=== PATIENT | female | born 1985 | race Caucasian/White ===

== ENCOUNTER 2016-09-15 18:38 | Emergency (ER) | payer OTHER ==
[~2016-09-15] VITALS: Ht 157.5 cm; Wt 80.2 kg
[~2016-09-15 18:38] MED LIST: ADVAIR 250/501 DISK IH; ADVAIR HFA120 INHALA IH; AEROECLIPSE1 EACH MC; AZITHROMYCIN250 MG PO; AZITHROMYCIN500 M1 PO; BENZONATATE100 MG PO; CETIRIZINE HCL10 M2; DELTASONE20 M1 PO; FLOVENT 22120 INHALA IH; FLOVENT 44120 INHALA IH; HYCODAN SYRUP480 ML PO; LEVOFLOXACIN750 MG PO; MEDROL DOSEPAK4 MG PO; OPTICHAMBER DI1 EACH; PEPCID20 MG PO; PREDNISONE10 M1 PO; PREDNISONE10 MG PO; PREDNISONE20 MG PO; PREDNISONE50 MG PO; PROAIR HFA8.5 GM; PROAIR HFA8.5 GM IH; PROAIR RESPICL90 MCG IH; PROVENTIL HFA6.7 GM IH; PROVENTIL,2.5 MG/3 M IH; PROVENTIL2.5 MG/3 M IH; ROBITUSSIN AC,T10 ML PO; ROBITUSSIN DM118 ML PO; TESSALON PERLE100 MG PO; TRAMADOL HCL50 MG PO; VENTOLIN HFA18 GM IH; ZITHROMAX Z-PA250 MG PO; ZYRTEC10 M2 PO
[2016-09-15 19:40] LABS: BASOPHIL COUNT 0.1 K/uL (0-0.1); EOSINOPHIL (%) 6.1 % (0-5); EOSINOPHIL COUNT 0.9 K/uL (0-0.3); IMMATURE GRANULOCYTE (%) 0.3 % (0.0-0.7); IMMATURE GRANULOCYTE COUNT 0.5 K/uL; LYMPHOCYTE COUNT 1.8 K/uL (1.0-2.8); MONOCYTE (%) 4.4 % (3-12); MONOCYTE COUNT 0.7 K/uL (0-0.8); NEUTROPHIL (%) 76.6 % (45-76); NEUTROPHIL COUNT 11.2 K/uL (1.8-6.4)
[2016-09-15 19:41] LABS: HEMATOCRIT 37.2 % (36.0-46.0); MCH 29.2 PG (29.0-34.0); MCHC 32.3 G/DL (30.0-36.0); MCV 90.5 FL (83-99); PLATELET COUNT 244 K/uL (156-360); RBC DIS.WIDTH-CV 14.1 % (11.8-14.6); RBC DIS.WIDTH-SD 45.4 % (39-53); RED BLOOD COUNT 4.11 M/uL (3.80-5.20); WHITE BLOOD COUNT 14.7 K/uL (4.1-10.2)
[2016-09-15 19:44] LABS: CHLORIDE 106 mEq/L (99-109); POTASSIUM 3.9 mEq/L (3.7-5.4); SODIUM 141 mEq/L (136-147)
[2016-09-15 19:47] LABS: GLUCOSE 107 mg/dL (70-99)
[2016-09-15 19:48] LABS: ANION GAP 11 MEQ/L (2-14)
[2016-09-15 19:49] LABS: TOTAL BILIRUBIN 0.4 mg/dL (0.0-1.0)
[2016-09-15 19:50] LABS: ALKALINE PHOSPHATASE 53 IU/L (3-129)
[2016-09-15 19:51] LABS: GFR ESTIMATE (CALCULATED) > 59 mL/min/
[2016-09-15 19:52] LABS: UREA NITROGEN (BUN) 19 mg/dL (9-23)
[2016-09-15 20:00] LABS: QUANTITATIVE HCG < 4.0 MIU/ML
[2016-09-15 20:13] LABS: INFLUENZA A VIRAL ANTIGEN NEGATIVE; INFLUENZA B VIRAL ANTIGEN NEGATIVE
[2016-09-15] MEDS ORDERED: PREDNISONE20 MG PO (21:30)
[2016-09-15 21:40] VITALS: BP 98/73
== END 2016-09-15 21:50 | disposition home or self-care (01) ==
LOC: EME 18:38
PROVIDERS: Emergency Medicine
DX: J45.901 Unspecified asthma with (acute) exacerbation (principal); F17.200 Nicotine dependence, unspecified, uncomplicated
CPT/HCPCS: 71020; 80053; 84702; 85025; 87502; 93005; 94640; 94640 76; 99281; 99284; J1100; J7644

== ENCOUNTER 2016-11-01 21:32 | Emergency (ER) | payer SELFPAY ==
[~2016-11-01] VITALS: Ht 160 cm; Wt 79.4 kg
[2016-11-01 21:44] LABS: HEMATOCRIT 39.6 % (36.0-46.0); MCH 28.8 PG (29.0-34.0); MCHC 31.3 G/DL (30.0-36.0); MCV 92.1 FL (83-99); MEAN PLAT.VOLUME 9.6 uM^3 (9.5-12.4); PLATELET COUNT 222 K/uL (156-360); RBC DIS.WIDTH-CV 13.5 % (11.8-14.6); RBC DIS.WIDTH-SD 45.5 % (39-53); WHITE BLOOD COUNT 7.8 K/uL (4.1-10.2)
[2016-11-01 21:52] LABS: CHLORIDE 107 mEq/L (99-109); POTASSIUM 3.9 mEq/L (3.7-5.4); SODIUM 141 mEq/L (136-147)
[2016-11-01 21:54] LABS: GLUCOSE 106 mg/dL (70-99)
[2016-11-01 21:55] LABS: ANION GAP 9 MEQ/L (2-14)
[2016-11-01 21:58] LABS: GFR ESTIMATE (CALCULATED) > 59 mL/min/
[2016-11-01 21:58] LABS: ADD MIUA? YES; BILIRUBIN NEGATIVE; BLOOD MODERATE; COLOR YELLOW ((YELLOW)); GLUCOSE (STRIP) NEGATIVE; KETONES NEGATIVE; LEUKOCYTES TRACE; NITRITE POSITIVE; PROTEIN (STRIP) NEGATIVE; SPECIFIC GRAVITY 1.008 (1.000-1.030); UROBILINOGEN 0.2 MG/DL (0.2-1.0)
[2016-11-01 21:59] LABS: UREA NITROGEN (BUN) 12 mg/dL (9-23)
[2016-11-01 22:07] LABS: QUANTITATIVE HCG < 4.0 MIU/ML
[2016-11-01 22:11] LABS: BACTERIA RARE /HPF; EPITHELIAL CELLS 1+ /HPF; MUCUS NONE SEEN /LPF; RED BLOOD CELLS 0-5 /HPF (0-5); UCUL ADDED? NO
[2016-11-01] MEDS ORDERED: PROVENTIL HFA6.7 GM IH (23:30)
[2016-11-01] MEDS ORDERED: PREDNISONE20 MG PO (23:30)
[2016-11-01] MEDS ORDERED: CIPRO500 MG PO (23:39)
[2016-11-02 00:02] VITALS: BP 129/81
== END 2016-11-01 23:50 | disposition home or self-care (01) ==
LOC: EME → EDBD 21:32 → EME 21:32
PROVIDERS: Emergency Medicine
DX: J45.909 Unspecified asthma, uncomplicated (principal); N39.0 Urinary tract infection, site not specified; F17.200 Nicotine dependence, unspecified, uncomplicated
CPT/HCPCS: 71010; 80048; 81003; 84702; 85027; 94640; 99281; 99285; J1100; J1200; J7644

== ENCOUNTER 2017-11-04 02:39 | Emergency (ER) | payer OTHER ==
[~2017-11-04] VITALS: Ht 157.5 cm; Wt 74.2 kg
[~2017-11-04 02:39] MED LIST changes: +CIPRO500 MG PO; +FLEXERIL10 MG PO; +INDOCIN25 MG PO; +LIDODERM 5% P1 PATCH TD; +MIRALAX255 GM PO; +PERCOCET 5/31 TABLET PO
[2017-11-04] MEDS ORDERED: CLONAZEPAM0.5 MG PO (07:22)
[2017-11-04 07:43] LABS: BASOPHIL (%) 0.4 % (0-1); EOSINOPHIL (%) 2.5 % (0-5); EOSINOPHIL COUNT 0.2 K/uL (0-0.3); HEMATOCRIT 39.7 % (36.0-46.0); HEMOGLOBIN 12.7 G/DL (11.9-15.5); IMMATURE GRANULOCYTE (%) 0.3 % (0.0-0.7); LYMPHOCYTE (%) 32.8 % (15-42); LYMPHOCYTE COUNT 2.6 K/uL (1.0-2.8); MCH 28.9 PG (29.0-34.0); MCV 90.4 FL (83-99); MONOCYTE (%) 11.1 % (3-12); MONOCYTE COUNT 0.9 K/uL (0-0.8); NEUTROPHIL (%) 52.9 % (45-76); NEUTROPHIL COUNT 4.2 K/uL (1.8-6.4); PLATELET COUNT 227 K/uL (156-360); RBC DIS.WIDTH-CV 14.1 % (11.8-14.6); RBC DIS.WIDTH-SD 46.8 % (39-53); RED BLOOD COUNT 4.39 M/uL (3.80-5.20); WHITE BLOOD COUNT 7.9 K/uL (4.1-10.2)
[2017-11-04 08:11] LABS: AMPHETAMINE NEGATIVE (500 ng/mL); BARBITURATES NEGATIVE (200 ng/mL); BENZODIAZEPINES NEGATIVE (150 ng/mL); BUPRENORPHINE NEGATIVE (10 ng/mL); COCAINE NEGATIVE (150 ng/mL); METHADONE NEGATIVE (200 ng/mL); METHAMPHETAMINE NEGATIVE (500 ng/mL); OPIATES (MORPHINE) NEGATIVE (100 ng/mL); OXYCODONE NEGATIVE (100 ng/mL); PHENCYCLIDINE NEGATIVE (25 ng/mL); PROPOXYPHENE NEGATIVE (300 ng/mL); THC CANNABINOIDS NEGATIVE (50 ng/mL); TRICYCLIC ANTIDEPRESSANTS NEGATIVE (300 ng/mL)
[2017-11-04 08:12] LABS: APPEARANCE CLEAR ((CLEAR)); COLOR YELLOW ((YELLOW))
[2017-11-04 08:13] LABS: BILIRUBIN NEGATIVE; BLOOD NEGATIVE; GLUCOSE (STRIP) NEGATIVE; KETONES NEGATIVE; LEUKOCYTES NEGATIVE; NITRITE NEGATIVE; PROTEIN (STRIP) NEGATIVE; UROBILINOGEN 0.2 MG/DL (0.2-1.0)
[2017-11-04 08:26] LABS: QUANTITATIVE HCG < 4.0 MIU/ML
[2017-11-04 08:45] LABS: CHLORIDE 112 MEQ/L (99-109); POTASSIUM 4.3 MEQ/L (3.7-5.4); SODIUM 144 MEQ/L (136-147)
[2017-11-04 08:50] LABS: CREATININE 0.7 MG/DL (0.6-1.3); GFR ESTIMATE (CALCULATED) > 59 mL/min/; GLUCOSE 97 mg/dL (70-99); SERUM ETHYL ALCOHOL 162 mg/dL; UREA NITROGEN (BUN) 11 mg/dL (9-23)
[2017-11-04 10:10] VITALS: BP 103/56
== END 2017-11-04 10:24 | disposition home or self-care (01) ==
LOC: EME 02:39
PROVIDERS: Emergency Medicine
DX: F10.129 Alcohol abuse with intoxication, unspecified (principal); F41.9 Anxiety disorder, unspecified; J45.909 Unspecified asthma, uncomplicated; F31.9 Bipolar disorder, unspecified; F17.200 Nicotine dependence, unspecified, uncomplicated; Y90.6 Blood alcohol level of 120-199 mg/100 ml
CPT/HCPCS: 80048; 81003; 84702; 85025; 99281; 99285; G0480

== ENCOUNTER 2018-04-09 18:33 | Emergency (ER) | payer OTHER ==
[~2018-04-09] VITALS: Ht 157.5 cm; Wt 81.4 kg
[~2018-04-09 18:33] MED LIST changes: +CLONAZEPAM0.5 MG PO
[2018-04-09] MEDS ORDERED: PROVENTIL,2.5 MG/3 M IH (20:00)
[2018-04-09] MEDS ORDERED: ZITHROMAX250 MG PO (20:00)
[2018-04-09] MEDS ORDERED: PREDNISONE20 MG PO (20:00)
[2018-04-09] MEDS ORDERED: VENTOLIN HFA18 GM IH (21:55)
[2018-04-09] MEDS ORDERED: TYLENOL REGULA325 MG PO (21:55)
[2018-04-09 22:22] VITALS: BP 110/79
== END 2018-04-09 22:27 | disposition left against medical advice (07) ==
LOC: EME 18:33
DX: J18.0 Bronchopneumonia, unspecified organism (principal); J45.901 Unspecified asthma with (acute) exacerbation; F17.210 Nicotine dependence, cigarettes, uncomplicated; F41.9 Anxiety disorder, unspecified; F31.9 Bipolar disorder, unspecified; Z86.69 Personal history of other diseases of the nervous system and sense organs
CPT/HCPCS: 94640; 99281; 99284; J7512